=== PATIENT | male | born 1970 | race Caucasian/White ===

== ENCOUNTER 2019-05-18 13:55 | Emergency (ER) | payer OTHER ==
[~2019-05-18] VITALS: Ht 170.2 cm; Wt 115.7 kg
[2019-05-18 14:01] VITALS: BP 120/74
--- NOTE | 2019-05-18 14:01 | NUR ---
STARTED WITH SOB THREE DAYS AGO, THEN PT HAD HEADACHE AND DIZZINESS. PT ALSO C/O NAUSEA THIS MORNING. NO VOMITTING.HEADACHE GETTING WORSE TODAY. 07/20 HX: HIGH CHOLESTROL. DENIES /V/D; SKIN IS PINK/WARM/DRY; AAOX4 WITH EVEN AND STEADY GAIT; LUNGS CLEAR BL; HR EVEN AND REGULAR; PT DENIES ANY FEVER, CP, SOB, OR COUGH AT THIS TIME; PATIENT STATES PAIN OF 10/10 AT THIS TIME; VSS; PATIENT POSITIONED FOR COMFORT; HOB ELEVATED; BEDRAILS UP X2; BED DOWN. ER MD MADE AWARE OF PT STATUS.
[2019-05-18] MEDS ORDERED: PROCHLORPERAZINE 10 MG/2 ML VIAL IM ONE (14:40)
[2019-05-18] MEDS ORDERED: diphenhydrAMINE 50 MG/ML VIAL IM ONE (14:40)
--- NOTE | 2019-05-18 15:29 | NUR ---
Dr. Awan re-evaluating patient at bedside.
--- NOTE | 2019-05-18 16:00 | NUR ---
Patient discharged with v/s stable. Written and verbal after care instructions given and explained. Patient alert, oriented and verbalized understanding of instructions. Ambulatory with steady gait. All questions addressed prior to discharge. ID band removed. Patient advised to follow up with PMD. Rx of TRAMADOL AND MOTRIN given. Patient educated on indication of medication including possible reaction and side effects. Opportunity to ask questions provided and answered.
[2019-05-18 16:05] VITALS: BP 135/64
== END 2019-05-18 16:00 | disposition home or self-care (01) ==
LOC: MED 13:55
DX: R51 Headache (principal); R11.0 Nausea; R42 Dizziness and giddiness
CPT/HCPCS: 96372; 99283; J0780; J1200